=== PATIENT | female | born 1965 | race Caucasian/White ===

== ENCOUNTER 2017-02-12 14:58 | Emergency (ER) | payer OTHER ==
[~2017-02-12] VITALS: Ht 170.2 cm; Wt 77.3 kg
[~2017-02-12 14:58] MED LIST: CETI10TA24 PO; ESTR2TAB PO; OXYC1TAB8 PO; PREG75CA PO
[2017-02-12] MEDS ORDERED: SODIUM CHLORIDE 0.9% 1,000 ML IV ONE (16:13)
[2017-02-12] MEDS ORDERED: ASPIRIN 81 MG TABLET CHEW PO ONE (16:30)
[2017-02-12 16:54] LABS: BLOOD UREA NITROGEN 15 mg/dL (7-18)
[2017-02-12 16:59] LABS: IS PT STATUS REG ER OR PRE ER? YES
[2017-02-12] MEDS ORDERED: ASPIRIN 81 MG TABLET CHEW ONE (18:42)
[2017-02-12] MEDS ORDERED: KETOROLAC 30 MG/1 ML IVPush ONE (19:00)
[2017-02-12] MEDS ORDERED: KETOROLAC 30 MG/1 ML ONE (19:28)
[2017-02-12] MEDS ORDERED: OMNIPAQUE 350 MG/ML, 100ML BOTTLE ONE (20:16)
[2017-02-12 20:57] VITALS: BP 121/76
== END 2017-02-12 21:04 | disposition home or self-care (01) ==
LOC: ED 21:03
DX: R07.89 Other chest pain (principal); R06.00 Dyspnea, unspecified
CPT/HCPCS: 36415; 71010; 71275; 80048; 82040; 83735; 84439; 84443; 84484; 85025; 93005; 96361; 96374; 99285; J1885; J7030; Q9967

== ENCOUNTER 2020-02-29 15:22 | Outpatient (CLI) | payer OTHER ==
[~2020-02-29 15:22] MED LIST changes: -CETI10TA24 PO; +CETI10TA26 PO
== END 2020-02-29 23:59 | disposition home or self-care (01) ==
LOC: CFH 15:22
PROVIDERS: ATTEND Student in an Organized Health Care Education/Training Program
DX: Z12.31 Encounter for screening mammogram for malignant neoplasm of breast (principal)
CPT/HCPCS: 77067

== ENCOUNTER → 2020-07-25 | Outpatient (CLI) | payer OTHER ==
[~2020-07-25] MED LIST changes: -CETI10TA26 PO; +CETI10TA76 PO
== END | disposition home or self-care (01) ==
LOC: STAR 15:44
PROVIDERS: ATTEND Neurological Surgery
DX: Z01.818 Encounter for other preprocedural examination (principal); Z01.812 Encounter for preprocedural laboratory examination; Z01.811 Encounter for preprocedural respiratory examination; R79.1 Abnormal coagulation profile; M48.02 Spinal stenosis, cervical region; M47.892 Other spondylosis, cervical region; R94.31 Abnormal electrocardiogram [ECG] [EKG]; R82.90 Unspecified abnormal findings in urine
CPT/HCPCS: 71046; 93005

== ENCOUNTER 2020-08-13 17:13 | Emergency (ER) | payer OTHER ==
[~2020-08-13] VITALS: Ht 170.2 cm; Wt 91.3 kg
--- NOTE | 2020-08-13 17:44 | NUR ---
acdf c7-t1 surg carlos a last week, incr pain in RUE w/ numbness to 4 and 5th finger and weakness, pain in armpit. percocet 10, muscle relaxant, elavil, no improvement. told by pa of her surg to come to ed if she cannot stand pain. a&ox4 gcs 15. as
--- NOTE | 2020-08-13 18:13 | NUR ---
AT BEDSIDE FOR ASSESSMENT.
[2020-08-13] MEDS ORDERED: SODIUM CHLORIDE FLUSH 10ML SYR IVF ONE (18:30)
[2020-08-13] MEDS ORDERED: ONDANSETRON 2MG/ML, 2ML IVPush ONE (18:30)
[2020-08-13] MEDS ORDERED: ONDANSETRON 2MG/ML, 2ML ONE (18:41)
[2020-08-13] MEDS ORDERED: HYDROmorphone 1 MG/ML, 1ML INJ ONE ×2 (18:41→20:00)
[2020-08-13] MEDS: HYDROmorphone 2 MG/ML, 1ML IVPush PRN ×2 (18:58→20:04)
--- NOTE | 2020-08-13 19:02 | NUR ---
PIV PLACED BY TASK RN, UNABLE TO DRAW LABS. MEDS ADMIN PER NOV. PT TAKEN TO MRI.
[2020-08-13] MEDS ORDERED: GADOTERATE 10 MMOL/20 ML VIAL ONE (19:32)
--- NOTE | 2020-08-13 20:13 | NUR ---
PT C/O 07/02 PAIN. 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 ALL RESULTS ARE BACK AT THIS TIME. CHART UP FOR RECHECK.
[2020-08-13] MEDS ORDERED: KETOROLAC 30 MG/1 ML ONE (20:45)
[2020-08-13 20:50] VITALS: BP 129/85
--- NOTE | 2020-08-13 20:57 | NUR ---
MD AT BEDSIDE TO UPDATE PT ON POC.
[2020-08-13] MEDS ORDERED: KETOROLAC 30 MG/1 ML IVPush ONE (21:00)
[2020-08-13] MEDS ORDERED: LORazepam 2 MG/ML, 1ML ONE (21:03)
[2020-08-13] MEDS: LORazepam 2 MG/ML, 1ML IVPush PRN ×2 (21:05→21:26)
== END 2020-08-13 21:43 | disposition home or self-care (01) ==
LOC: ED 17:59
DX: M54.12 Radiculopathy, cervical region (principal); Z87.891 Personal history of nicotine dependence
CPT/HCPCS: 72156; 96374; 96375; 96376; 99285; A9575; J1170; J1885; J2060; J2405

== ENCOUNTER → 2020-08-26 | Outpatient (CLI) | payer OTHER | END | disposition home or self-care (01) | LOC: CFH 12:57 | PROVIDERS: ATTEND Physician Assistant Surgical | DX: M47.812 Spondylosis without myelopathy or radiculopathy, cervical region (principal); M48.02 Spinal stenosis, cervical region | CPT/HCPCS: 72125 ==

== ENCOUNTER → 2020-08-29 | Outpatient (CLI) | payer OTHER ==
[2020-08-29 14:28] LABS: ANION GAP 6 mmol/L (5-15); CALCIUM 9.2 mg/dL (8.5-10.1); CHLORIDE 105 mmol/L (98-107); CREATININE 0.79 mg/dL (0.55-1.02); INTERNATIONAL NORMALIZED RATIO 0.91 (0.93-1.1); PROTHROMBIN TIME 9.7 Seconds (9.6-11.5)
[2020-08-29 14:38] LABS: MICROSCOPIC NOT IND
[2020-08-29 15:09] LABS: BASOPHILS % (AUTO) 0 % (0-1); EOSINOPHILS % (AUTO) 1 % (1-7); LYMPHOCYTES % (AUTO) 35 % (22-44); MEAN PLATELET VOLUME 7.1 fL (7.4-10.4); MONOCYTES % (AUTO) 8 % (2-9); NEUTROPHILS % (AUTO) 57 % (42-75); PLATELET COUNT 326 x10^3/uL (130-400); RED BLOOD COUNT 4.41 x10^6/uL (3.82-5.3)
[2020-08-29 15:23] LABS: MD NO
== END | disposition home or self-care (01) ==
LOC: LAB 14:00
PROVIDERS: ATTEND Neurological Surgery
DX: Z01.818 Encounter for other preprocedural examination (principal); M48.02 Spinal stenosis, cervical region; M54.12 Radiculopathy, cervical region; M47.892 Other spondylosis, cervical region
CPT/HCPCS: 36415; 80048; 81003; 85025; 85610; 85730